=== PATIENT | male | born 1960 | race Caucasian/White ===

== ENCOUNTER 2018-05-14 01:36 | Inpatient (IN) | payer MEDICARE, MEDICAID ==
[2018-05-14] VITALS (11 sets, daily range): BP systolic 116–145; BP diastolic 78–104
[~2018-05-14] VITALS: Ht 168.9 cm; Wt 65.8 kg
[2018-05-14] MEDS ORDERED: NORMOSOL R SOLN(*) 1000 ML BAG 1,000 ML IV PRN (06:00)
[2018-05-14] MEDS ORDERED: ACETAMINOPHEN 500 MG TAB PO ONE (06:00)
[2018-05-14] MEDS ORDERED: MIDAZOLAM 2 MG/2 ML VIAL IVP PRN (06:00)
[2018-05-14] MEDS ORDERED: PREGABALIN 150 MG CAPSULE PO ONE (06:00)
[2018-05-14] MEDS ORDERED: LIDOCAINE/SOD BICARB 8.4% SYR ID ONE (06:00)
[2018-05-14] MEDS ORDERED: FAMOTIDINE 20 MG TAB PO ONE (06:00)
[2018-05-14] MEDS ORDERED: CLINDAMYCIN 900 MG/D5W 50 ML 50 ML IVPB ONE (06:00)
[2018-05-14] MEDS ORDERED: fentaNYL CITR 250 MCG/5 ML AMP ONE (06:41)
[2018-05-14] MEDS ORDERED: LIDOCAINE 2% IV 100 MG/5ML SYR ONE (06:42)
[2018-05-14] MEDS ORDERED: PROPOFOL EMUL(*) 10MG/ML 20 ML 20 ML ONE (06:43)
[2018-05-14] MEDS ORDERED: PROPOFOL EMUL(*) 10MG/ML 20 ML 0 ML ONE (06:45)
[2018-05-14] MEDS ORDERED: REMIFENTANIL HCL 1 MG VIAL ONE (06:47)
[2018-05-14] MEDS ORDERED: PROPOFOL(*)1000 MG/100 ML VIAL 100 ML ONE (06:48)
[2018-05-14] MEDS ORDERED: VASOPRESSIN 20 UNIT/ML VIAL ONE (07:15)
[2018-05-14] MEDS ORDERED: EPINEPHrine HCL 1 MG/ML AMP ONE (07:15)
[2018-05-14] MEDS ORDERED: DEXAMETHASONE SOD PHOS 10MG/ML ONE (07:19)
[2018-05-14] MEDS ORDERED: ONDANSETRON 4 MG/2 ML VIAL ONE (07:20)
[2018-05-14] MEDS ORDERED: KETAMINE HCL 200 MG/20 ML MDV ONE (07:47)
[2018-05-14] MEDS ORDERED: fentaNYL CITR 100 MCG/2 ML AMP ONE (09:21)
[2018-05-14] MEDS ORDERED: ACETAMINOPHEN(*)1000 MG/100 ML 100 ML IVPB PRN (09:50)
[2018-05-14] MEDS ORDERED: ACETAMINOPHEN 500 MG TAB PO PRN (09:50)
[2018-05-14] MEDS ORDERED: HYDROmorphone HCL 2 MG/ML SDV IVP PRN (09:50)
[2018-05-14] MEDS ORDERED: LR(*) 1000 ML BAG 1,000 ML IV PRN (09:50)
[2018-05-14] MEDS ORDERED: oxyCODONE HCL 5 MG CAP PO PRN (09:50)
[2018-05-14] MEDS ORDERED: ONDANSETRON 4 MG/2 ML VIAL IVP PRN (09:50)
[2018-05-14] MEDS ORDERED: BENZOCAINE/MENTHOL 1 EACH LOZG PO PRN (09:50)
[2018-05-14] MEDS ORDERED: DIAZEPAM 5 MG TAB PO PRN (09:50)
[2018-05-14] MEDS ORDERED: FLUSH 10 ML SYR IVP PRN (09:50)
[2018-05-14] MEDS ORDERED: diphenhydrAMINE 25 MG CAP PO PRN (09:50)
[2018-05-14] MEDS ORDERED: MAGNESIUM HYDROXIDE* 30ML UDCP PO PRN (09:50)
[2018-05-14] MEDS ORDERED: BISACODYL 10 MG SUPP PR PRN (09:50)
[2018-05-14] MEDS ORDERED: ACET-2146 PO (10:29)
--- NOTE | 2018-05-14 10:31 | RADIOLOGY IMAGING REPORT ---
FACILITY: [facility] PATIENT NAME: Bright Waite : 1960 MR: [id number] V: [id number] EXAM DATE: ORDERING PHYSICIAN: REGINA TIRADO TECHNOLOGIST: Location: [facility] [place] Patient: Bright Waite : 1960 Visit/Account:[id number] Date of Sevice: 05/14/2018 Exam type: CERVICAL SPINE 1 VIEW History: ANTERIOR C6-7 DISCECTOMY AND FUSION Comparison: None. Findings: Two intraoperative cross table lateral supine views of the cervical spine were submitted. Images dem onstrate anterior fusion at C6-7 with anterior screws and intervertebral disc spacer. Incidentally n oted is an endotracheal tube. IMPRESSION: 1. As above Report Dictated By: Michelle Mayberry MD at 05/14/2018 10:26 AM Report E-Signed By: Michelle Mayberry MD at 05/14/2018 10:27 AM WSN:[id number]
--- NOTE | 2018-05-14 11:45 | Hospitalist Consultation ---
History of Present Illness Requesting Physician Dr. Giang Reason for Consult Medical Management Chief Complaint s/p cervical fusion History of Present Illness He was admitted s/p cervical fusion. It is reported the surgery went well and without complication. History Problems: (1) Cigarette smoker Home Meds Reported Medications Acetaminophen 500 Mg Tab (ACETAMINOPHEN EXTRA STRENGTH) 500 Mg Tablet, 500 MG PO Q4-6H, TAB 05/14/18 Allergies: Coded Allergies: Penicillins (Verified Allergy, Severe, CONVULSIONS, 05/13/18) Patient History: FH: diabetes mellitus FH: lung disease FATHER, Hx Smoking: Yes Smoking Status: Current: Every Day Smoker Caffeine Intake: Coffee Caffeine/Cups Per Day: 1 CUP DAILY, OCC SODA Hx Alcohol Use: Yes Alcohol Used: Beer Hx Substance Use Disorder: No Social Drug Use: Never History of IV Drug Use: No Review of Systems All Systems Reviewed/Normal: Yes, Except as Noted Exam Vital Signs Vital Signs Date Time Temp Pulse Resp B/P (MAP) Pulse Ox O2 Delivery O2 Flow Rate FiO2 05/14/18 11:00 97.5 60 12 128/81 (97) 94 Nasal Cannula 2.0 General Appearance: No Acute Distress, Afebrile Cardiovascular: Regular Rate and Rhythm Respiratory: No Respiratory Distress, Clear to Auscultation Psych: Other (sleeping throughout exam) Assessment and Plan Problems: (1) S/P cervical spinal fusion Status: Acute Assessment & Plan: Followed by Dr. Giang. (2) Cigarette smoker Assessment & Plan: He does not want tobacco replacement at this time. Venous Thromboembolism Antithrombotics Is Pt On Any Antithrombotics?: No Exam Sepsis Risk: No Definite Risk RENATA WELCH TEST ANALYST May 14, 2018 11:45
--- NOTE | 2018-05-14 12:22 | OPERATIVE REPORT 1 ---
EVENT DATE: May 14, 2018 SURGEON: Paras Giang M.D. ANESTHESIOLOGIST: Sam Menon M.D. ANESTHESIA: General endotracheal. CLEANER HOUSEKEEPING: BRITTANY Dixon, CUSTOMER SERVICE OFFICER PREOPERATIVE DIAGNOSIS Left greater than right C7 radiculopathy secondary to C6-C7 herniated nucleus pulposus. POSTOPERATIVE DIAGNOSIS Left greater than right C7 radiculopathy secondary to C6-C7 herniated nucleus pulposus. PROCEDURE PERFORMED C6-C7 anterior cervical diskectomy and fusion. IV FLUIDS 1 liter. ESTIMATED BLOOD LOSS 20 cc. IMPLANTS USED 1. 8 mm size medium 6 degree lordotic interbody spacer from [employer]. 2. 3.5 mm x 14 mm fixation screws from [employer]. SPECIMENS None. DRAINS 10-[place] round Evan-Gaspar drain through the neck. COMPLICATIONS None. DISPOSITION Post-Anesthesia Care Unit. INDICATIONS FOR SURGERY Mr. Waite is a 58-year-old gentleman with left greater than right radiating arm pain down the posterior triceps dorsal forearm and into the fingers of the hand. He notes numbness and tingling in the same distribution as his pain and occasional weakness in the left arm. He had noted some episodes where he felt like he had incomplete emptying of the bladder but no emily incontinence of urinary retention. Physical therapy and activity modification as well as medications resulted in no improvement of symptoms. Physical examination was significant for positive Spurling's maneuver, recreating symptoms in the C7 distribution on the left. Upper extremity strength testing was 5/5 in bilateral deltoids and biceps with triceps at 5/5 on the right and 4+/5 on the left. Light touch sensation was subjectively diminished throughout the left hand. Diagnostic studies showed a large disk herniation extending the cephalad direction from the C6-C7 level, significantly compromising the left greater than right neural foramen. No cord signal changes were seen. Secondary to ongoing symptoms and failure of nonsurgical treatment, Mr. Waite was offered and elected to undergo C6-C7 anterior cervical diskectomy and fusion. Prior to surgery, I explained in detail to the patient the possible risks of surgery. These risks include bleeding, infection, damage to surrounding structures, esophageal injury, swallowing difficulty, need for tube feeding, hoarseness, damage to the superior or recurrent laryngeal nerve, need for further surgery, spinal cord injury, nerve root injury, spinal fluid leak, meningitis, , blindness, sexual dysfunction, autonomic nervous system dysfunction and other unforeseen medical and surgical complications. An understanding that in general spinal surgery is more predictive at improving extremity discomfort than axial spine pain was stressed. DESCRIPTION OF PROCEDURE On the day of surgery, the patient was met in the preoperative hold area and all questions were answered. The operative site was identified and marked by myself. The patient was brought in good condition to the operating room and after succumbing to anesthesia was positioned in the supine position on a standard OR bed. All bony protuberances were well padded in the standard fashion. Care was taken to maintain appropriate perfusion pressure during anesthesia. Preoperative antibiotics were administered according to the appropriate timing schedule. At the conclusion of the procedure, the sponge and needle counts were correct x2. A final time-out was undertaken by members of the operating team to confirm correct patient, correct levels and correct surgery. The patient was then prepped and draped with the arms secured at the side to afford access to the anterior cervical spine. A transverse incision was made over the intended surgical levels and sharp dissection was carried out down to the platysma, which was divided. Blunt finger dissection was then carried out medial to the sternocleidomastoid muscle, taking care to feel for the carotid pulse and maintain the dissection medial to the carotid sheath. I then came down on the anterior aspect of the cervical spine and we used Kittners to clear soft tissues from the anterior disk spaces and vertebral bodies. A Schnidt was placed on the anterior annulus of C5-C6 disk and a lateral radiograph was obtained that confirmed correct positioning. We then turned our attention to the C6-C7 disk and elevated soft tissues off the anterior spine including the longus colli muscles in a subperiosteal manner. A self-retaining retractor was placed and distracted, taking care to keep the retractor blades beneath the longus colli muscles. A microscope was then brought into the field. A #15 blade was used to incise the anterior annulus of the C6-C7 disk space. The anterior annulus was removed with a pituitary rongeur. A #2 Kerrison was then used to remove the overhanging osteophytes from this C6 vertebral body. Progressively smaller curettes were then used to perform a diskectomy from ventral to dorsal out to the uncovertebral joints bilaterally. A Cloward condenser tester was then placed and distracted. There was no change in neurophysiologic monitoring. Multiple large loose fragments of disks were then removed from the interval between the annulus and the posterior longitudinal ligament. The posterior longitudinal ligament was dissected through using a small forward-angled curette and then taken down with a combination of #1 and #2 Kerrison rongeurs. Bilateral foraminal decompressions were performed with #2 Kerrison and a nerve hook was passed behind the vertebral bodies to ensure no prolonged compression of the cord was present and that no further loose disk fragments were in the canal. The nerve hook was then used and passed out the neural foramina, ensuring excellent decompression of bilateral C7 roots. Attention was then turned to placement of the interbody device and the fusion. The Cloward spreaders were removed and there was no change in neurophysiologic monitoring. An 8 mm lordotic combination trial and rasp was placed within the disk space and found to be an excellent fit. We, therefore, chose the 8 mm lordotic interbody device and this was packed with ViBone. The device was then inserted in the disk space and countersunk about 1 mm. The awl was used to penetrate the endplates through the integrated fixation holes within the graft and 3.5 mm x 14 mm screws were then placed, one into C6 and one into C7. A lateral radiograph was obtained that confirmed excellent positioning of the implant. The wound was irrigated with copious sterile saline solution and meticulous hemostasis was obtained. Closure was then performed using interrupted sutures for the platysma, inverted interrupted sutures for the subcutaneous tissue and then a running subcuticular skin stitch. A 10-[place] round Evan Gaspar drain was left deep to the platysma. Sponge and needle counts were correct x2. POSTOPERATIVE CARE PLAN Mr. Waite will remain in the hospital overnight with the head of bed elevated 30 degrees. We will pull his drain in the morning and discharge him home with instructions to follow up with me in two weeks for wound check and examination. HAFSA
[2018-05-14] MEDS: APAP/HYDROCODONE 325/5 TAB PO PRN ×2 (12:32→18:26)
[2018-05-14] MEDS: CLINDAMYCIN 900 MG/D5W 50 ML 50 ML IVPB SCH ×2 (14:57→23:15)
[2018-05-14] MEDS: DOCUSATE SODIUM 100 MG CAP PO SCH (20:16)
[2018-05-15 00:11] VITALS: BP 103/70
[2018-05-15] MEDS: APAP/HYDROCODONE 325/5 TAB PO PRN ×2 (02:58→08:26)
[2018-05-15 02:59] VITALS: BP 105/71
[2018-05-15] MEDS: CLINDAMYCIN 900 MG/D5W 50 ML 50 ML IVPB SCH (06:21)
[2018-05-15 07:04] VITALS: BP 118/75
[2018-05-15 08:19] VITALS: Ht 168.9 cm; Wt 65.8 kg
[2018-05-15] MEDS: DOCUSATE SODIUM 100 MG CAP PO SCH (08:25)
[2018-05-15] MEDS ORDERED: LOR5/325 PO (08:39)
[2018-05-15] MEDS ORDERED: DOCU240C84 PO (08:39)
[2018-05-15] MEDS ORDERED: RANITIDINE HCL 150 MG TAB PO SCH (09:00)
--- NOTE | 2018-05-15 09:22 | Hospitalist Progress Note ---
Subjective Progress Notes Subjective He has no complaints this morning. He had no acute events overnight. Patient Complains of: Cardiovascular: No: Chest Pain Respiratory: No: Shortness of Breath Physical Exam Vital Signs Date Time Temp Pulse Resp B/P (MAP) Pulse Ox O2 Delivery O2 Flow Rate FiO2 05/15/18 08:28 89 05/15/18 08:28 Room Air 05/15/18 07:04 98.0 61 16 118/75 (89) 2.0 Intake and Output 05/15/18 07:00 Intake Total 2010 ml Output Total 395 ml Balance 1615 ml Intake Oral 860 ml IV Total 1150 ml Output Urine Total 375 ml Estimated Blood Loss 20 ml # Voids 1 General Appearance: Alert, Awake, No Acute Distress, Afebrile Neuro: No Gross deficits Cardiovascular: Regular Rate and Rhythm Respiratory: No Respiratory Distress, Clear to Auscultation GI: Soft and Non-Tender Extremities: Warm, Perfused; No Edema Psych: Alert & Oriented X3, Appropriate Mood & Affect Assessment and Plan Problems: (1) S/P cervical spinal fusion Status: Acute Assessment & Plan: Followed by Dr. Giang. (2) Cigarette smoker Assessment & Plan: He does not want tobacco replacement at this time. Exam Sepsis Risk: No Definite Risk RENATA WELCH COMPUTER SYSTEM TECHNICIAN May 15, 2018 09:22
== END 2018-05-15 12:00 | disposition home or self-care (01) | DRG 473 ==
LOC: OR 01:36 → MED 10:23
PROVIDERS: ADMIT Orthopaedic Surgery; ATTEND Orthopaedic Surgery
PROC: 0RT30ZZ Resection of Cervical Vertebral Disc, Open Approach (ICD-10-PCS; 2018-05-14)
PROC: 01N10ZZ Release Cervical Nerve, Open Approach (ICD-10-PCS; 2018-05-14)
PROC: 0RG10A0 Fusion of Cervical Vertebral Joint with Interbody Fusion Device, Anterior Approach, Anterior Column, Open Approach (ICD-10-PCS; principal; 2018-05-14 07:00)
DX: M50.123 Cervical disc disorder at C6-C7 level with radiculopathy (principal); F17.210 Nicotine dependence, cigarettes, uncomplicated; Z88.0 Allergy status to penicillin
CPT/HCPCS: 36415; 72020; 86850; 86900; 86901; 97161; J0171; J1100; J2001; J2250; J2405; J2704; J3010; J3490